=== PATIENT | male | born 1975 | race Caucasian/White ===

== ENCOUNTER 2018-04-11 06:34 | Emergency (ER) | payer OTHER ==
[~2018-04-11] VITALS: Ht 172.7 cm; Wt 96.2 kg
[2018-04-11 06:38] VITALS: Ht 172.7 cm; Wt 96.2 kg
[2018-04-11 09:24] VITALS: BP 139/83
== END 2018-04-11 09:24 | disposition home or self-care (01) ==
LOC: ED 06:34
DX: S62.632A Displaced fracture of distal phalanx of right middle finger, initial encounter for closed fracture (principal); W26.8XXA Contact with other sharp object(s), not elsewhere classified, initial encounter; Y93.89 Activity, other specified; Y92.89 Other specified places as the place of occurrence of the external cause; Y99.8 Other external cause status
CPT/HCPCS: 90715; A4570; J0696; J2001